=== PATIENT | female | born 1985 | race Caucasian/White ===

== ENCOUNTER → 2022-06-25 | Day surgery (SDC) | payer BC ==
[~2022-06-25] MED LIST: ABILIFY5 MG PO; AMBIEN CR12.5 MG PO; BUPIVACAINE 0.25% 30ML SDV ONE; DEPAKOTE ER500 MG PO; FENTANYL CITRATE/PF 100MCG/2 ML INJ ONE; HYDROCODON-ACE1 EAC9 PO; HYDROXYZINE HCL50 MG PO; IOPAMIDOL 200 MG/ML 20 ML VIAL IT ONE; LEXAPRO20 MG PO; LIDOCAINE HCL 1% 30ML-PF VIAL ONE; LITHIUM PO; POVIDONE IODINE 0.05% 0.05 % ML PO ONE; PROPOFOL IV EMULSION 10 MG/ML 20 ML VIAL ONE; SLOW FE PO
[2022-06-25 06:55] VITALS: BP 115/83
== END | disposition home or self-care (01) ==
LOC: OR 06:28
PROVIDERS: ATTEND Physical Medicine & Rehabilitation Pain Medicine
DX: G57.71 Causalgia of right lower limb (principal); G89.4 Chronic pain syndrome; G62.9 Polyneuropathy, unspecified; J45.909 Unspecified asthma, uncomplicated; G40.909 Epilepsy, unspecified, not intractable, without status epilepticus; E78.5 Hyperlipidemia, unspecified; K58.9 Irritable bowel syndrome, unspecified; F98.8 Other specified behavioral and emotional disorders with onset usually occurring in childhood and adolescence; F31.9 Bipolar disorder, unspecified; Z88.8 Allergy status to other drugs, medicaments and biological substances; Z88.6 Allergy status to analgesic agent; Z79.899 Other long term (current) drug therapy; Z96.82 Presence of neurostimulator; Z91.81 History of falling
CPT/HCPCS: 64520; 77003; J2001; J2704; J3010; Q9967

== ENCOUNTER → 2024-01-26 | Day surgery (SDC) | payer BC ==
[~2024-01-26] MED LIST changes: +AMBIEN CR6.25 MG PO; -BUPIVACAINE 0.25% 30ML SDV ONE; +COTEMPLA XR-O17.3 MG PO; +DEXAMETHASONE 4 MG TAB ONE; +DEXMEDETOMIDINE HCL 200 MCG/2 ML VIAL ONE; +HYDROXYZINE HCL25 MG PO; -IOPAMIDOL 200 MG/ML 20 ML VIAL IT ONE; +LACTATED RINGER'S 1,000 ML BAG ONE; +LACTATED RINGER'S 1,000 ML ONE; +LATUDA60 MG PO; -LIDOCAINE HCL 1% 30ML-PF VIAL ONE; +LIDOCAINE HCL 2% LOCAL INJ 5 ML SDV VIAL INJ ONE; +MIDAZOLAM HCL 2 MG/2 ML VIAL ONE; +ONDANSETRON HCL INJ 2MG/ML 2ML 2 MG/ML VIAL ONE; +PANTOPRAZOLE SO40 MG PO; -POVIDONE IODINE 0.05% 0.05 % ML PO ONE; +PROMETHAZINE HC25 M1 PO; +ROPINIROLE HCL1 MG PO; +TRAZODONE HCL50 MG PO; +VITAMIN B121000 MCG PO
[2024-01-26 10:40] VITALS: BP 102/69; PULSE 76; RESP 16; O2SAT 96
== END | disposition home or self-care (01) ==
LOC: OR 08:31
PROVIDERS: ATTEND Physical Medicine & Rehabilitation Pain Medicine
DX: G90.521 Complex regional pain syndrome I of right lower limb (principal); G89.4 Chronic pain syndrome; G25.81 Restless legs syndrome; R56.9 Unspecified convulsions; G62.9 Polyneuropathy, unspecified; J45.909 Unspecified asthma, uncomplicated; K58.9 Irritable bowel syndrome, unspecified; K29.70 Gastritis, unspecified, without bleeding; K76.0 Fatty (change of) liver, not elsewhere classified; F41.9 Anxiety disorder, unspecified; F31.9 Bipolar disorder, unspecified; F90.9 Attention-deficit hyperactivity disorder, unspecified type; Z88.6 Allergy status to analgesic agent; Z88.8 Allergy status to other drugs, medicaments and biological substances; Z79.899 Other long term (current) drug therapy; Z91.81 History of falling; Z87.828 Personal history of other (healed) physical injury and trauma
CPT/HCPCS: 64520; J2001; J2250; J2405; J2704; J3010; J7121; J8540; 77002